=== PATIENT | female | born 1995 | race Caucasian/White ===

== ENCOUNTER 2020-10-01 03:24 | Emergency (ER) | payer MEDICAID, SELFPAY ==
[2020-10-01 03:34] VITALS: BP 89/63; PULSE 86; RESP 16; TEMP 36.7; O2SAT 100; BMI 22.4
--- NOTE | 2020-10-01 03:49 | ED_ITS ---
Documented by User: EFREM Vazquez 10/01/20 04:22 HPI - Anxiety General: Chief Complaint: Anxiety Stated Complaint: ANXIETY/SYNCOPE Time Seen by Provider: 10/01/20 03:48 History of Present Illness: HPI narrative: 25-year-old female comes in today for complaints of a syncopal episode. Patient reports that she has a history of hypertrophic cardiomyopathy, ataxia, and anxiety. Patient yesterday lost her father secondary to a car accident and possible cardiac event. Patient reports that she was outside a lot yesterday in the heat. Patient had went to bed in the evening but woke up late in the night with some chest discomfort and felt like she passed out. Review of Systems General: Reports: 10 or more systems reviewed and unremarkable except in HPI and below Card: Reports: other (syncope) Physical Exam Const: COMMON NORMALS: no acute distress and patient oriented x3 GENERAL APPEARANCE: cooperative HENMT: COMMON NORMALS: normocephalic and Normal external nose present HEAD & SCALP: normal to inspection and normocephalic NOSE: Normal external nose present MOUTH: Normal oral and palatal mucosa present THROAT: posterior oropharynx normal Eye: GENERAL EYE: appearance normal, both eyes and all related structures Neck/C-Spine: COMMON NORMALS: full ROM Lymph: LYMPHATIC: no lymphadenopathy noted Chest: COMMONS NORMALS: normal inspection of the chest Resp: COMMON NORMALS: normal respiratory effort and clear to auscultation bilaterally EFFORT & INSPECTION: Yes able to speak in complete sentences AUSCULTATION: clear to auscultation bilaterally Cardio: COMMON NORMALS: regular rate and regular rhythm RATE: regular rate RHYTHM: regular rhythm GI: COMMON NORMALS: non-tender Back/Pelvis: COMMON NORMALS: thoracic and lumbar spine normal to inspection Extremity: COMMON NORMALS: normal to inspection NARRATIVE EXTREMITY EXAM: Edema to bilateral lower extremities +1. Neuro: COMMON NORMALS: patient oriented x3 OTHER: Ataxia is noted to the upper extremities which is patient's normal. Psych: COMMON NORMALS: mental status grossly normal and cooperative Skin: COMMON NORMALS: no rashes or lesions noted GENERAL SKIN EXAM: no rashes or lesions noted Course Vital Signs: Vital signs: Vital Signs Temperature 98.1 F 10/01/20 03:34 Pulse Rate 94 10/01/20 11:56 Respiratory Rate 16 10/01/20 11:56 Blood Pressure 94/60 10/01/20 11:56 Pulse Oximetry 98 10/01/20 11:56 MDM - Anxiety MDM Narrative: Medical decision making narrative: Patient comes in today with complaints of some chest discomfort and a syncopal event. Patient has a history of hypertrophic cardiomyopathy. Patient also has history of ataxia and anxiety. Patient recently lost her father yesterday due to a cardiac event and car accident. Patient reports that she was awakened tonight with chest discomfort and then passed out. Patient recovered and states that she has no more chest pain or discomfort at this time. On exam patient has a slow and steady heart rate at about 80 bpm. Patient has some edema +1 to bilateral lower extremities. Patient also exhibits some ataxia which is normal for her. Patient's blood pressure is slightly low at 89/63. Differential diagnosis includes but not limited to vasovagal syncope, dehydration, ACS. Lab Data: Labs: Lab Results 10/01/20 10/01/20 10/01/20 Range/Units 04:05 04:05 04:05 WBC 6.9 (4.0-10.0) 10^3/ uL RBC 4.54 (4.1-5.3) 10^6/u L Hgb 12.5 (11.5-15.3) g/dL Hct 39.6 (37.0-47.0) % MCV 87.2 (81-99) fL MCH 27.5 L (28.0-34.0) pg MCHC 31.6 (30.0-36.0) g/dL RDW 14.3 (12.1-15.1) % Plt Count 253 (130-400) 10^3/c mm MPV 11.1 H (7.4-10.4) fL Neut % (Auto) 58.2 % Lymph % (Auto) 32.8 % [place] % (Auto) 6.7 % Eos % (Auto) 1.6 % Baso % (Auto) 0.6 % Neut # (Auto) 4.00 (1.8-7.7) 10^3/u L Lymph # (Auto) 2.3 (0.8-4.8) 10^3/u L [place] # (Auto) 0.5 (0.2-0.9) 10^3/u L Eos # (Auto) 0.1 (0.0-0.8) 10^3/u L Baso # (Auto) 0.0 (0.0-0.1) 10^3/u L Nucleated RBC % (a uto) 0 % Nucleated RBCs # 0.0 /100WBC Sodium 139 (136-145) mmol/L Potassium 3.9 (3.5-5.1) mmol/L Chloride 105 (98-107) mmol/L Carbon Dioxide 21 L (22-29) mmol/L Anion Gap 16.9 (5-19) BUN 8 (6-20) mg/dL Creatinine 0.5 (0.5-0.9) mg/dL GFR Calculation 150.3 H (90-130) mL/min Glucose 103 (65-115) mg/dL Calculated Osmolal ity 287 (285-295) mOsm/k g Calcium 8.6 (8.5-10.5) mg/dL Troponin T Baselin e 356 H* (0-10) ng/L Troponin T 120 Min [place] (0-10) ng/L Delta Troponin T (0-10) ABS# NT-Pro-B Natriuret Pep 3016 H (0-125) pg/mL 10/01/20 Range/Units 06:40 WBC (4.0-10.0) 10^3/ uL RBC (4.1-5.3) 10^6/u L Hgb (11.5-15.3) g/dL Hct (37.0-47.0) % MCV (81-99) fL MCH (28.0-34.0) pg MCHC (30.0-36.0) g/dL RDW (12.1-15.1) % Plt Count (130-400) 10^3/c mm MPV (7.4-10.4) fL Neut % (Auto) % Lymph % (Auto) % [place] % (Auto) % Eos % (Auto) % Baso % (Auto) % Neut # (Auto) (1.8-7.7) 10^3/u L Lymph # (Auto) (0.8-4.8) 10^3/u L [place] # (Auto) (0.2-0.9) 10^3/u L Eos # (Auto) (0.0-0.8) 10^3/u L Baso # (Auto) (0.0-0.1) 10^3/u L Nucleated RBC % (a uto) % Nucleated RBCs # /100WBC Sodium (136-145) mmol/L Potassium (3.5-5.1) mmol/L Chloride (98-107) mmol/L Carbon Dioxide (22-29) mmol/L Anion Gap (5-19) BUN (6-20) mg/dL Creatinine (0.5-0.9) mg/dL GFR Calculation (90-130) mL/min Glucose (65-115) mg/dL Calculated Osmolal ity (285-295) mOsm/k g Calcium (8.5-10.5) mg/dL Troponin T Baselin e (0-10) ng/L Troponin T 120 Min [place] 325.4 H (0-10) ng/L Delta Troponin T -30.6 L (0-10) ABS# NT-Pro-B Natriuret Pep (0-125) pg/mL Discharge Plan Discharge Patient Disposition: Home Clinical Impression: Hypertrophic cardiomyopathy, Friedreich ataxia, Syncope and collapse, Elevated troponin Condition: Stable Discharge Orders: Discharge ED (Routine); Ordered 10/01/20 Ordered By: Markos Eng Referrals: Dionicio Pulido M.D [Physician] - Discharge Diet: Advance as tolerated Discharge Activity: Resume usual activity Patient Instructions: Opioid Safety Activity Restrictions/Additional Instructions: Encourage p.o. fluids. Wear event monitor as instructed. Follow-up with cardiology in 5 to 7 days. Sign Out Sign Out Data: Patient Sign Out occurred on 10/01/20 at 04:46. Patient's care was discussed, and care was transferred from Edu Glover to Doyle Davis DO. Sign Out Comment: patient had a syncopal event, hx of hypertrophic cardiomyopathy, and ataxia Last updated by Edu Glover FNP at 10/01/20 04:21 Patient Sign Out occurred on 10/01/20 at 06:11. Patient's care was discussed, and care was transferred from to Markos Eng MD. Coding Level of Care Code ED Realtime Captioner for Chg Fwd Exam Comprehensive Documented by User: Markos Eng MD 10/01/20 09:29 HPI - Anxiety General: Chief Complaint: Anxiety Stated Complaint: ANXIETY/SYNCOPE Time Seen by Provider: 10/01/20 03:48 Course ED course: I did discuss at length with patient and family about family the history and concerns for syncope and collapse collapse in the setting of hypertrophic cardiomyopathy and Friedreich Ataxia. Consultations: Consultation #1: I did discuss at length with Dr. Estefania gomez about the patient's complaint of chest pain syncope and elevated troponin. He states he knows the family well in this patient well. States his belly believes is related to hypertrophic cardiomyopathy this genetic. States he will see patient as a consult if 2-hour troponin is unchanged. Time: 06:30 Consultation #2: I did discuss at length with Dr. He and we did review patient's case. He is can discuss with cardiology to see if the patient can be safely discharged home versus an observation bed. We will continue to monitor the patient. Time: 07:23 Consultation #3: Discussed again at length with Dr. He and Dr. Pulido. Dr. pulido request echocardiogram in the emergency department. And then he will see in the emergency department. Will probably discharge home if everything checks out okay. We will continue to monitor the patient. Time: 07:27 Additional Consultation(s): 5 Elliot discussed at length with cardiology Dr. Kenny states echocardiogram shows significant ventricular hypertrophy. He request that we give an additional IV fluid bolus. And discharge patient home with an event monitor patient is to follow-up with cardiology days. Vital Signs: Vital signs: Vital Signs Temperature 98.1 F 10/01/20 03:34 Pulse Rate 94 10/01/20 11:56 Respiratory Rate 16 10/01/20 11:56 Blood Pressure 94/60 10/01/20 11:56 Pulse Oximetry 98 10/01/20 11:56 MDM - Anxiety Lab Data: Labs: Lab Results 10/01/20 10/01/20 10/01/20 Range/Units 04:05 04:05 04:05 WBC 6.9 (4.0-10.0) 10^3/ uL RBC 4.54 (4.1-5.3) 10^6/u L Hgb 12.5 (11.5-15.3) g/dL Hct 39.6 (37.0-47.0) % MCV 87.2 (81-99) fL MCH 27.5 L (28.0-34.0) pg MCHC 31.6 (30.0-36.0) g/dL RDW 14.3 (12.1-15.1) % Plt Count 253 (130-400) 10^3/c mm MPV 11.1 H (7.4-10.4) fL Neut % (Auto) 58.2 % Lymph % (Auto) 32.8 % [place] % (Auto) 6.7 % Eos % (Auto) 1.6 % Baso % (Auto) 0.6 % Neut # (Auto) 4.00 (1.8-7.7) 10^3/u L Lymph # (Auto) 2.3 (0.8-4.8) 10^3/u L [place] # (Auto) 0.5 (0.2-0.9) 10^3/u L Eos # (Auto) 0.1 (0.0-0.8) 10^3/u L Baso # (Auto) 0.0 (0.0-0.1) 10^3/u L Nucleated RBC % (a uto) 0 % Nucleated RBCs # 0.0 /100WBC Sodium 139 (136-145) mmol/L Potassium 3.9 (3.5-5.1) mmol/L Chloride 105 (98-107) mmol/L Carbon Dioxide 21 L (22-29) mmol/L Anion Gap 16.9 (5-19) BUN 8 (6-20) mg/dL Creatinine 0.5 (0.5-0.9) mg/dL GFR Calculation 150.3 H (90-130) mL/min Glucose 103 (65-115) mg/dL Calculated Osmolal ity 287 (285-295) mOsm/k g Calcium 8.6 (8.5-10.5) mg/dL Troponin T Baselin e 356 H* (0-10) ng/L Troponin T 120 Min [place] (0-10) ng/L Delta Troponin T (0-10) ABS# NT-Pro-B Natriuret Pep 3016 H (0-125) pg/mL 10/01/20 Range/Units 06:40 WBC (4.0-10.0) 10^3/ uL RBC (4.1-5.3) 10^6/u L Hgb (11.5-15.3) g/dL Hct (37.0-47.0) % MCV (81-99) fL MCH (28.0-34.0) pg MCHC (30.0-36.0) g/dL RDW (12.1-15.1) % Plt Count (130-400) 10^3/c mm MPV (7.4-10.4) fL Neut % (Auto) % Lymph % (Auto) % [place] % (Auto) % Eos % (Auto) % Baso % (Auto) % Neut # (Auto) (1.8-7.7) 10^3/u L Lymph # (Auto) (0.8-4.8) 10^3/u L [place] # (Auto) (0.2-0.9) 10^3/u L Eos # (Auto) (0.0-0.8) 10^3/u L Baso # (Auto) (0.0-0.1) 10^3/u L Nucleated RBC % (a uto) % Nucleated RBCs # /100WBC Sodium (136-145) mmol/L Potassium (3.5-5.1) mmol/L Chloride (98-107) mmol/L Carbon Dioxide (22-29) mmol/L Anion Gap (5-19) BUN (6-20) mg/dL Creatinine (0.5-0.9) mg/dL GFR Calculation (90-130) mL/min Glucose (65-115) mg/dL Calculated Osmolal ity (285-295) mOsm/k g Calcium (8.5-10.5) mg/dL Troponin T Baselin e (0-10) ng/L Troponin T 120 Min [place] 325.4 H (0-10) ng/L Delta Troponin T -30.6 L (0-10) ABS# NT-Pro-B Natriuret Pep (0-125) pg/mL Discharge Plan Discharge Patient Disposition: Home Clinical Impression: Hypertrophic cardiomyopathy, Friedreich ataxia, Syncope and collapse, Elevated troponin Condition: Stable Discharge Orders: Discharge ED (Routine); Ordered 10/01/20 Ordered By: Markos Eng Referrals: Dionicio Pulido M.D [Physician] - Discharge Diet: Advance as tolerated Discharge Activity: Resume usual activity Patient Instructions: Opioid Safety Activity Restrictions/Additional Instructions: Encourage p.o. fluids. Wear event monitor as instructed. Follow-up with cardiology in 5 to 7 days. Sign Out Sign Out Data: Patient Sign Out occurred on 10/01/20 at 04:46. Patient's care was discussed, and care was transferred from Edu Glover to Doyle Davis DO. Sign Out Comment: patient had a syncopal event, hx of hypertrophic cardiomyopathy, and ataxia Last updated by Edu Glover FNP at 10/01/20 04:21 Patient Sign Out occurred on 10/01/20 at 06:11. Patient's care was discussed, and care was transferred from to Markos Eng MD. Coding Level of Care Code ED Realtime Captioner for Chg Fwd Exam Comprehensive Documented by User: Doyle Davis DO 10/06/20 14:10 HPI - Anxiety General: Chief Complaint: Anxiety Stated Complaint: ANXIETY/SYNCOPE Time Seen by Provider: 10/01/20 03:48 Course Vital Signs: Vital signs: Vital Signs Temperature 98.1 F 10/01/20 03:34 Pulse Rate 94 10/01/20 11:56 Respiratory Rate 16 10/01/20 11:56 Blood Pressure 94/60 10/01/20 11:56 Pulse Oximetry 98 10/01/20 11:56 MDM - Anxiety MDM Narrative: Medical decision making narrative: Reviewed case and discussed with midlevel. Agree with assessment and plan. Lab Data: Labs: Lab Results 10/01/20 10/01/20 10/01/20 Range/Units 04:05 04:05 04:05 WBC 6.9 (4.0-10.0) 10^3/ uL RBC 4.54 (4.1-5.3) 10^6/u L Hgb 12.5 (11.5-15.3) g/dL Hct 39.6 (37.0-47.0) % MCV 87.2 (81-99) fL MCH 27.5 L (28.0-34.0) pg MCHC 31.6 (30.0-36.0) g/dL RDW 14.3 (12.1-15.1) % Plt Count 253 (130-400) 10^3/c mm MPV 11.1 H (7.4-10.4) fL Neut % (Auto) 58.2 % Lymph % (Auto) 32.8 % [place] % (Auto) 6.7 % Eos % (Auto) 1.6 % Baso % (Auto) 0.6 % Neut # (Auto) 4.00 (1.8-7.7) 10^3/u L Lymph # (Auto) 2.3 (0.8-4.8) 10^3/u L [place] # (Auto) 0.5 (0.2-0.9) 10^3/u L Eos # (Auto) 0.1 (0.0-0.8) 10^3/u L Baso # (Auto) 0.0 (0.0-0.1) 10^3/u L Nucleated RBC % (a uto) 0 % Nucleated RBCs # 0.0 /100WBC Sodium 139 (136-145) mmol/L Potassium 3.9 (3.5-5.1) mmol/L Chloride 105 (98-107) mmol/L Carbon Dioxide 21 L (22-29) mmol/L Anion Gap 16.9 (5-19) BUN 8 (6-20) mg/dL Creatinine 0.5 (0.5-0.9) mg/dL GFR Calculation 150.3 H (90-130) mL/min Glucose 103 (65-115) mg/dL Calculated Osmolal ity 287 (285-295) mOsm/k g Calcium 8.6 (8.5-10.5) mg/dL Troponin T Baselin e 356 H* (0-10) ng/L Troponin T 120 Min [place] (0-10) ng/L Delta Troponin T (0-10) ABS# NT-Pro-B Natriuret Pep 3016 H (0-125) pg/mL 10/01/20 Range/Units 06:40 WBC (4.0-10.0) 10^3/ uL RBC (4.1-5.3) 10^6/u L Hgb (11.5-15.3) g/dL Hct (37.0-47.0) % MCV (81-99) fL MCH (28.0-34.0) pg MCHC (30.0-36.0) g/dL RDW (12.1-15.1) % Plt Count (130-400) 10^3/c mm MPV (7.4-10.4) fL Neut % (Auto) % Lymph % (Auto) % [place] % (Auto) % Eos % (Auto) % Baso % (Auto) % Neut # (Auto) (1.8-7.7) 10^3/u L Lymph # (Auto) (0.8-4.8) 10^3/u L [place] # (Auto) (0.2-0.9) 10^3/u L Eos # (Auto) (0.0-0.8) 10^3/u L Baso # (Auto) (0.0-0.1) 10^3/u L Nucleated RBC % (a uto) % Nucleated RBCs # /100WBC Sodium (136-145) mmol/L Potassium (3.5-5.1) mmol/L Chloride (98-107) mmol/L Carbon Dioxide (22-29) mmol/L Anion Gap (5-19) BUN (6-20) mg/dL Creatinine (0.5-0.9) mg/dL GFR Calculation (90-130) mL/min Glucose (65-115) mg/dL Calculated Osmolal ity (285-295) mOsm/k g Calcium (8.5-10.5) mg/dL Troponin T Baselin e (0-10) ng/L Troponin T 120 Min [place] 325.4 H (0-10) ng/L Delta Troponin T -30.6 L (0-10) ABS# NT-Pro-B Natriuret Pep (0-125) pg/mL Discharge Plan Discharge Patient Disposition: Home Clinical Impression: Hypertrophic cardiomyopathy, Friedreich ataxia, Syncope and collapse, Elevated troponin Condition: Stable Discharge Orders: Discharge ED (Routine); Ordered 10/01/20 Ordered By: Markos Eng Referrals: Dionicio Pulido M.D [Physician] - Discharge Diet: Advance as tolerated Discharge Activity: Resume usual activity Patient Instructions: Opioid Safety Activity Restrictions/Additional Instructions: Encourage p.o. fluids. Wear event monitor as instructed. Follow-up with cardiology in 5 to 7 days. Sign Out Sign Out Data: Patient Sign Out occurred on 10/01/20 at 04:46. Patient's care was discussed, and care was transferred from Edu Glover to oDyle Davis DO. Sign Out Comment: patient had a syncopal event, hx of hypertrophic cardiomyopathy, and ataxia Last updated by Edu Glover FNP at 10/01/20 04:21 Patient Sign Out occurred on 10/01/20 at 06:11. Patient's care was discussed, and care was transferred from to Markos Eng MD. Coding Level of Care Code ED Realtime Captioner for [place] Fwd Exam Comprehensive
[2020-10-01] MEDS: sodium chloride 0.9% 500 ML IV (04:15)
[2020-10-01 04:16] LABS: Basophils % 0.6 %; Eosinophils # 0.1 10^3/uL (0.0-0.8); Eosinophils % 1.6 %; Hematocrit 39.6 % (37.0-47.0); Hemoglobin 12.5 g/dL (11.5-15.3); Lymphocytes # 2.3 10^3/uL (0.8-4.8); Lymphocytes % 32.8 %; Mean Corpuscular HGB Conc 31.6 g/dL (30.0-36.0); Mean Corpuscular Hemoglobin 27.5 pg (28.0-34.0); Mean Corpuscular Volume 87.2 fL (81-99); Mean Platelet Volume 11.1 fL (7.4-10.4); Monocytes # 0.5 10^3/uL (0.2-0.9); Monocytes % 6.7 %; Neutrophils % 58.2 %; Nucleated Red Blood Cells % 0 %; Platelet Count 253 10^3/cmm (130-400); Red Blood Count 4.54 10^6/uL (4.1-5.3); Red Cell Distribution Width 14.3 % (12.1-15.1); White Blood Count 6.9 10^3/uL (4.0-10.0)
[2020-10-01 04:43] LABS: Anion Gap 16.9 (5-19); Blood Urea Nitrogen 8 mg/dL (6-20); Calcium 8.6 mg/dL (8.5-10.5); Carbon Dioxide 21 mmol/L (22-29); Chloride 105 mmol/L (98-107); Glomerular Filtration Rate 150.3 mL/min (90-130); Glucose 103 mg/dL (65-115); NT Pro B Type Natriuretic Pept 3016 pg/mL (0-125); Osmolality Calculated 287 mOsm/kg (285-295); Potassium 3.9 mmol/L (3.5-5.1); Sodium 139 mmol/L (136-145)
[2020-10-01 04:45] LABS: Troponin(5th) Baseline 356 ng/L (0-10)
--- NOTE | 2020-10-01 04:49 | XRR_ITS ---
PROCEDURE INFORMATION: Exam: XR Chest Exam date and time: 10/01/2020 4:49 AM Age: 25 years old Clinical indication: Abnormal findings; Abnormal diagnostic tests; Other: Elevated bnp; Additional info: Elevated bnp, cardiomyopathy TECHNIQUE: Imaging protocol: XR of the chest. Views: 1 view. COMPARISON: No relevant prior studies available. FINDINGS: Lungs: Unremarkable. No consolidation. Pleural spaces: Unremarkable. No pleural effusion. No pneumothorax. Heart/Mediastinum: Unremarkable. No cardiomegaly. Bones/joints: There is prominent lower thoracic scoliosis convex to the right. XR/XR chest 1V portable [id number] IMPRESSION: No significant cardiopulmonary abnormality.
[2020-10-01 05:27] VITALS: BP 76/51; BP 94/54; PULSE 81; PULSE 84
--- NOTE | 2020-10-01 06:12 | ECG_ITS ---
[facility] ED Test Date: 2020-10-01 Pat Name: Betsey Stover Department: Room: Gender: Female Safety Investigator: : 1995 Requested By: Edu Ang Order Number: [id number] Olsen MD: Kalee Jorge M.D. Measurements Intervals [place] Rate: 78 P: 46 VT: 129 QRS: 65 QRSD: 73 T: -76 QT: 371 QTc: 423 Interpretive Statements SINUS RHYTHM POSSIBLE RIGHT ATRIAL ENLARGEMENT [0.25mV P WAVE] POSSIBLE LEFT ATRIAL ENLARGEMENT [-0.1mV P WAVE IN V1/V2] LEFT VENTRICULAR HYPERTROPHY AND ST-T CHANGE [VOLTAGE CRITERIA PLUS ST/T ABNORMALITY] No previous ECG available for comparison Electronically Signed On 10-10-2020 12:44:31 CDT by Kalee Jorge M.D. [email or web address]
--- NOTE | 2020-10-01 07:00 | PC.NURSE ---
Pt resting quietly between care, pt and mother updated on plan of care, comfort measures offered, no immediate needs identified, will continue to monitor.
[2020-10-01 07:11] LABS: Troponin 5 2HR 325.4 ng/L (0-10); Troponin 5 2HR Delta -30.6 ABS# (0-10)
--- NOTE | 2020-10-01 07:25 | USCV_ITS ---
Betsey Stover Age: 25 Gender: F : 1995 Exam Date: 10/01/2020 07:42 Ordering Phys: Markos Eng MD Technologist: Xiomara Ayers [place] [facility] [place]ication: HYPERTROPHIC CARDIOMYOPATHY BP: 117 / 80 HR: 92 Rhythm: Sinus Technical Quality: Adequate MEASUREMENTS (Male / Female) Normal Values 2D ECHO LV Diastolic Diameter PLAX 2.9 cm 4.2 - 5.9 / 3.9 - 5.3 cm LV Systolic Diameter PLAX 1.8 cm IVS Diastolic Thickness 1.7 cm 0.6 - 1.0 / 0.6 - 0.9 cm IVS Systolic Thickness 2.1 cm LVPW Diastolic Thickness 1.8 cm 0.6 - 1.0 / 0.6 - 0.9 cm LVPW Systolic Thickness 2.2 cm RV Chamber Size 2.2 cm LVOT Diameter 2.0 cm LV Ejection Fraction 2D Teich 71.1 % LV Ejection Fraction MOD 2C 75.0 % LV Ejection Fraction 2C AL 72.9 % LA Diameter 2.1 cm LA Width 3.2 cm LA Height 3.3 cm RA Width 2.5 cm RA Height 3.3 cm Aorta at Sinotubular Diameter 1.9 cm M-MODE MV E Point Septal Separation 0.5 cm DOPPLER AV Peak Velocity 111.0 cm/s LVOT Peak Velocity 106.0 cm/s AV Area Cont Eq vti 2.3 cm squared AV Area Cont Eq pk 3.1 cm squared MV E' Velocity 7.0 cm/s TR Peak Velocity 91.0 cm/s TR Peak Gradient 3.3 mmHg TV Peak E Velocity 91.0 cm/s Right Atrial Pressure 3.0 mmHg Pulmonary Artery Systolic Pressu 6.3 mmHg PV Peak Velocity 86.0 cm/s RV Acceleration Time 0.1 s RV Ejection Time 0.3 s RV AcT/ET 0.5 FINDINGS Left Ventricle Severe left ventricular hypertrophy of concentric type. Small left ventricular cavity due to severe hypertrophy. Left ventricle is hyperdynamic in function.left ventricular ejection fraction is estimated at 71 %. No regional wall motion abnormalities. No systolic anterior motion of mitral valve or LVOT obstruction noted.Normal diastolic function. Right Ventricle The right ventricle is normal in size and function. Right Atrium The right atrium is normal in size. Left Atrium The left atrium is normal in size. Mitral Valve Structurally normal mitral valve without significant stenosis or prolapse. There is no mitral regurgitation. Aortic Valve Structurally normal aortic valve without significant sclerosis or stenosis. There is no aortic regurgitation. Tricuspid Valve Structurally normal tricuspid valve without significant stenosis or regurgitation. Pulmonary artery systolic pressure is normal. Pulmonic Valve Structurally normal pulmonic valve without significant stenosis. There is no pulmonic regurgitation. Pericardium Normal pericardium without effusion. Aorta Normal ascending aorta dimension. CONCLUSIONS 1-Severe left ventricular hypertrophy of concentric type. Small left ventricular cavity due to severe hypertrophy. Left ventricle is hyperdynamic in function. Left ventricular ejection fraction is estimated at 71 %. No regional wall motion abnormalities. No systolic anterior motion of mitral valve or LVOT obstruction noted.Normal diastolic function. 2-No significant valve abnormalities. 3-There is no pericardial effusion. 4-Pulmonary artery systolic pressure is within normal limits. 5-There is no pericardial effusion. 6-Right atrial pressure is around 0 to 5 mm of mercury. 7-There are no prior echocardiogram studies to compare. Christiano Luciano MD (Electronically Signed) Final Date: 01 October 2020 09:45 S
--- NOTE | 2020-10-01 09:30 | PM.CONSULT ---
Providers/Reason For Consult Consulting Physician/Specialty*: Dionicio Pulido MD/Cardiology Reason for Consult*: Syncope Requesting Physician: Dr Eng History of Present Illness History of Present Illness Betsey Stover is a 25 year old female with past medical history of hypertrophic cardiomyopathy and Friedreich's ataxia has presented with an episode of possible syncope. Her father recently after having a cardiac arrest. According to patient this morning she woke up and also felt some mild chest discomfort. She was diaphoretic. Believes that she passed out. Duration is unknown. According to her mother she had similar episodes in the past as well. She was hypotensive as well. Has not been drinking enough water. Echocardiogram performed today shows severe concentric left ventricular hypertrophy Review of Systems General: Reports: 10 or more systems reviewed and unremarkable except in HPI and below Meds/Allergies Home Medications and Allergies Allergies Allergy/AdvReac Type Severity Reaction Status Date / Time No Known Allergies Allergy Verified 10/01/20 03:34 PFSH Acute PFSH: Medical History Hypertrophic cardiomyopathy Family History Father CAD (coronary artery disease) Vitals/I&O/Wt Last Vital Signs Temp 98.1 F 10/01/20 03:34 Pulse 81 10/01/20 05:27 Resp 16 10/01/20 03:34 BP 76/51 10/01/20 05:27 Pulse Ox 100 10/01/20 03:34 09/30/20 10/01/20 10/01/20 22:59 06:59 14:59 Intake Total 500 / 500 Balance 500 / 500 Weight last 48 hrs Weight 135 lb Physical Exam Narrative: EXAM NARRATIVE: GENERAL: Patient is alert, awake and oriented x3. [] NECK: No jugular vein distension. [] HEENT: No cyanosis. No icterus. No pallor. [] HEART: Regular S1 and S2. No murmur, rub or gallop. [] LUNGS: Clear to auscultate bilaterally. [] ABDOMEN: Soft, nontender and nondistended. Positive bowel sounds. No guarding, rebound or tenderness. [] CENTRAL NERVOUS SYSTEM: Grossly nonfocal. [] EXTREMITIES: Lower extremities with no edema bilaterally. Pulses palpable in the lower extremities, both dorsalis pedis and posterior tibial. [] A&P Assessment and plan (1) Hypertrophic cardiomyopathy: Status: Acute (2) Friedreich ataxia: Status: Acute (3) Syncope and collapse: Status: Acute (4) Elevated troponin: Status: Acute Patient is severe left ventricular hypertrophy without HOCM. She likely was dehydrated that caused the syncopal episode. Troponin elevated however did not trend up. She is chest pain-free. She can be discharged with an event monitor. IV fluid resuscitation done in the hospital. I have advised her to drink plenty of water patient. We will follow her in the office. We will likely [facility]. Thank you for involving us with care of this patient. Please call with questions. Coding Level of Care Code Acute Cancellation Clerk for Woo Sheikh Diagnoses Hypertrophic cardiomyopathy I42.2 Friedreich ataxia G11.11 Syncope and collapse R55 Elevated troponin R77.8
[2020-10-01] MEDS: sodium chloride 0.9% 1,000 ML 999 ML IV (10:00)
[2020-10-01 10:12] VITALS: BP 82/54; PULSE 88; RESP 20; O2SAT 98
[2020-10-01 11:00] VITALS: BP 94/60; PULSE 80; RESP 14; O2SAT 98
[2020-10-01 11:56] VITALS: BP 94/60; PULSE 94; RESP 16; O2SAT 98
== END 2020-10-01 11:57 | disposition home or self-care (01) ==
PROVIDERS: Nurse Practitioner Family; Emergency Provider Emergency Medicine
DX: I42.2 Other hypertrophic cardiomyopathy (principal); G11.11 Friedreich ataxia; R55 Syncope and collapse; R77.8 Other specified abnormalities of plasma proteins
CPT/HCPCS: 36415; 71045; 80048; 83880; 84484; 85025; 93005; 93306; 96360; 96361; 99284; J7030; J7040